=== PATIENT | male | born 1990 | race Caucasian/White ===

== ENCOUNTER 2024-01-03 07:40 | Emergency (ER) | payer OTHER ==
[2024-01-03 07:56] VITALS: BP 110/67; PULSE 68; RESP 20; TEMP 98.4; BMI 21.2
== END 2024-01-03 08:13 | disposition home or self-care (01) ==
LOC: JER 07:40 → JERFT 07:40
DX: K91.840 Postprocedural hemorrhage of a digestive system organ or structure following a digestive system procedure (principal)
CPT/HCPCS: 99283-25